=== PATIENT | male | born 1970 | race African-American/Black ===

== ENCOUNTER → 2021-04-01 | Outpatient (CLI) | payer OTHER ==
[~2021-04-01] MED LIST: ACETAMINOPHEN325 M1 PO; AUGMENTIN 500-1 EACH PO; LAMICTAL; LAMICTAL150 MG PO; PHENYTEK300 MG PO
== END ==
LOC: SJCVCIMAG 07:54
PROVIDERS: ATTEND Internal Medicine
DX: R00.0 Tachycardia, unspecified (principal); I49.3 Ventricular premature depolarization; I07.9 Rheumatic tricuspid valve disease, unspecified; R00.2 Palpitations; I11.9 Hypertensive heart disease without heart failure; R06.00 Dyspnea, unspecified; R53.83 Other fatigue